=== PATIENT | male | born 1955 | race African-American/Black ===

== ENCOUNTER 2018-06-27 00:12 | Emergency (ER) | payer OTHER ==
[2018-06-27] MEDS ORDERED: Proparacaine 0.5% Opth 15 ML BOT ONE (00:41)
[2018-06-27] MEDS ORDERED: Bacitracin Zinc 1 Packet ONE (01:18)
--- NOTE | 2018-06-27 08:20 | RAD ---
CHEST ONE VIEW: HISTORY: Chest pain. Injury. COMPARISON: None. FINDINGS: Some scarring in the left lung base. No pneumothorax. No effusion. 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 The cardiac silhouette and mediastin al contours appear within normal limits. IMPRESSION: No acute intrathoracic abnormality. POS: [facility]
== END 2018-06-27 01:54 ==
LOC: EEVIPCON 00:12 → ERS 00:12
DX: S00.11XA Contusion of right eyelid and periocular area, initial encounter (principal); S20.211A Contusion of right front wall of thorax, initial encounter; Y00.XXXA Assault by blunt object, initial encounter
CPT/HCPCS: 71045; 99284